=== PATIENT | female | born 1995 | race Asian ===

== ENCOUNTER 2023-06-10 07:40 | Inpatient (IN) ==
[2023-06-10] MEDS ORDERED: LIDOCAINE 1% LOCAL 20 ML VIAL INFIL PRN (08:05)
[2023-06-10] MEDS ORDERED: OXYTOCIN 30 UNITS/NSS 30 UNITS/500 ML BAG IV PRN ×3 (08:05→13:28)
[2023-06-10 08:28] LABS: Hemoglobin 11.1 g/dl (12.0-16.0); Mean Corpuscular Hemoglobin 30.7 pg (25.0-34.0); Mean Corpuscular Hgb Conc 33.6 g/dL (32.0-36.0); Mean Corpuscular Volume 91.2 fL (80.0-100.0); Mean Platelet Volume 12.2 fL (9.4-12.4); Platelet Count 126 K/uL (130-400); RDW Coefficient of Variation 13.5 % (11.5-14.5); RDW Standard Deviation 45.5 fL (36.4-46.3); Red Blood Count 3.62 M/uL (4.20-5.40)
--- NOTE | 2023-06-10 08:41 | History & Physical Report ---
Date of Service June 10, 2023 Assessment & Plan (1) Encounter for induction of labor: Plan admit, iv, labs. start pitocin. fhts categ 1. epidural when desires. Admission and Anticipated Discharge Date Admission Date: June 10, 2023 History of Present Illness Chief Complaint: planned induction Primary Care Provider: NO PCP 28yo at 40+wks egpee presents to L&D for planned induction of labor. No rom, no vb. +FM. No ctx. PNC uncomplicated. PNL rh pos, ri, gbs neg OBH: g1 GYNH: nl paps no stds Allergies Allergy/AdvReac Type Severity Reaction Status Date / Time No Known Allergies Allergy Verified 06/10/23 08:15 Home Medications Medication Instructions Recorded Confirmed Type calcium carbonate [Calcium 500] PO 03/25/23 06/09/23 History docosahexaenoic acid [Algal PO 03/25/23 06/09/23 History Pollock-3 DHA] folic acid PO 03/25/23 06/09/23 History lxliwyeaxazv-tgkl-gmtrhcey PO 03/25/23 06/09/23 History ferrous sulfate PO 04/22/23 06/09/23 History Patient History Medical History (Updated 06/10/23 @ 08:40 by Karie Smith MD, FACOG) Varicella vaccination Surgical History No history of previous surgery Family History Mother Lung cancer Hypertension Grandmother (Maternal) Depression Denies family history of Ovarian cancer Breast cancer Colorectal cancer Social History (Updated 03/25/23 @ 10:13 by Isabella Matos) Smoking Status: Never smoker Do You Dip or Chew Tobacco: No; Hx Alcohol Use: No Hx Substance Use: No Preferred Language: Lithuanian Communication Ability: Effective 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 Beliefs That Will Affect Care: Voodoo Voodoo Beliefs: hindu and Cultural Cultural Beliefs: plans to chew arnoldo when in labor for strength marital status: marital status details: Abran Combs (30) Current Living Situation: Spouse, Parent and Family Current Living Situation Comment: lives with spouse, sister inlaw & boyfriend, 2 dogs current occupation: [employer] Assistive Devices: None Review of Systems as per Subjective / HPI Physical Exam Constitutional: WD/WN, vitals as above Respiratory: normal respiratory effort, lungs clear to auscultation Cardiovascular: Rate/Rhythm: regular rate and regular rhythm Gastrointestinal (Abdomen): soft gravid nt efw 7# Musculoskeletal: no edema nontender calves Neurologic: grossly normal Psychiatric: A+Ox3, euthymic affect Genitourinary: OB Exam Abdomen: + vertex Manual OB Exam: + cervical dilation 6 cm, + cervical effacement (75%), + station -1 and + amniotic fluid (AROM) clear OB Exam Monitor Tracing: + external FHT monitor used, + external uterine monitor used (irreg), + category I and + normal FHT variability Results & Data Vital Signs (Past 12 Hours) Vital Signs Temp Pulse Resp BP 06/10/23 07:55 98.2 F 18 06/10/23 07:54 81 125/73 Code Status & VTE Plan VTE Prophylaxis Plan VTE Prophylaxis will be ordered: No Coding Level of Care Code None Diagnoses Encounter for induction of labor Z34.90
[2023-06-10] MEDS: LACTATED RINGER'S 1,000 ML IV PRN ×2 (08:42→11:22)
[2023-06-10] MEDS ORDERED: SODIUM CHLORIDE 0.9% PF INJ 10 ML VIAL ONE (08:46)
[2023-06-10] MEDS ORDERED: ePHEDrine sulfate 50 MG/ML AMP ONE (08:46)
[2023-06-10] MEDS ORDERED: fentaNYL citrate PF 100 MCG/2 ML VIAL ONE (08:46)
[2023-06-10] MEDS ORDERED: fentANYL 2 MCG/ML BUPIVacaine 0.125%-NSS 100ML BAG ONE (08:47)
[2023-06-10] MEDS ORDERED: BUPIVACAINE 0.25% PF 30 ML VIAL ONE (08:47)
[2023-06-10] MEDS ORDERED: LIDOCAINE 2%/EPINEPHRINE 1:200,000 20 ML PF ONE (08:47)
[2023-06-10] MEDS ORDERED: LIDOCAINE 2%/EPINEPHRINE 1:200,000 20 ML PF EPI STA (10:10)
[2023-06-10] MEDS ORDERED: diphenhydrAMINE 50 MG/ML VIAL IV PRN (10:10)
[2023-06-10] MEDS ORDERED: NALBUPHINE HCL 5 MG in SYRINGE 0 ML IV PRN (10:10)
[2023-06-10] MEDS ORDERED: fentANYL 2 MCG/ML BUPIVacaine 0.125%-NSS 100ML BAG EPI PRN (10:10)
[2023-06-10] MEDS ORDERED: fentaNYL citrate PF 100 MCG/2 ML VIAL EPI PRN (10:10)
[2023-06-10] MEDS ORDERED: fentaNYL citrate PF 100 MCG/2 ML VIAL EPI STA (10:10)
[2023-06-10] MEDS ORDERED: ROPIVACAINE 0.5% PF 5 MG/ML 20 ML VIAL EPI PRN (10:10)
[2023-06-10] MEDS ORDERED: BUPIVACAINE 0.25% PF 30 ML VIAL EPI STA (10:10)
[2023-06-10] MEDS ORDERED: BUPIVACAINE 0.25% PF 30 ML VIAL EPI PRN (10:10)
[2023-06-10] MEDS ORDERED: LIDOCAINE 2% MPF LOCAL 5 ML VIAL EPI PRN (10:10)
[2023-06-10] MEDS ORDERED: ePHEDrine sulfate 50 MG/ML AMP IV PRN (10:10)
[2023-06-10] MEDS ORDERED: NALOXONE HCL 0.4 MG/1 ML VIAL/CARP IV PRN (10:10)
[2023-06-10] MEDS ORDERED: ONDANSETRON INJ 2 MG/ML 2 ML VIAL IV PRN (10:10)
[2023-06-10] MEDS ORDERED: SODIUM CHLORIDE 0.9% PF INJ 10 ML VIAL EPI STA (10:10)
[2023-06-10] MEDS ORDERED: SODIUM CHLORIDE 0.9% PF INJ 10 ML VIAL EPI PRN (10:10)
[2023-06-10] MEDS ORDERED: NALOXONE HCL 1 MG in SODIUM CHLORIDE 0.9% 1,000 ML IV PRN (10:10)
--- NOTE | 2023-06-10 10:10 | Anesthesiology Consultation ---
Date of Service June 10, 2023 Assessment & Plan ASA ASA2 Proposed Anesthesia Anesthesia Type: Labor Epidural Risk / Benefits Reviewed With: PT / POA / Parent / Guardian, Accepts Plan and Informed Consent Obtained History Height/Weight Height: 5 ft 2.2 in Weight: 55.248 kg Allergies Allergy/AdvReac Type Severity Reaction Status Date / Time No Known Allergies Allergy Verified 06/10/23 08:15 Medications Home Medications Medication Instructions Recorded Confirmed Last Taken calcium carbonate [Calcium 500] PO 03/25/23 06/09/23 Unknown docosahexaenoic acid [Algal PO 03/25/23 06/09/23 Unknown [place]-3 DHA] folic acid PO 03/25/23 06/09/23 Unknown edjperqddhhf-wsxi-mtiuecwj PO 03/25/23 06/09/23 Unknown ferrous sulfate PO 04/22/23 06/09/23 Unknown Active Medications Generic Name Dose Route Start Last Admin Trade Name Freq PRN Reason Stop Dose Admin Fentanyl/Bupivacaine/Sodium Chlor 100 ml 06/10/23 10:10 06/10/23 10:34 Fentanyl 2 Mcg/Ml Bupivacaine 0.125%-Nss 100ml Bag EPI 06/11/23 10:09 100 ml PRN PRN Administration Pain R/T Labor Protocol Lactated Ringer's 1,000 mls @ 125 mls/hr 06/10/23 08:05 06/10/23 10:17 Lr IV 06/12/23 08:04 999 mls/hr .Q8H PRN Infusion L&D Protocol Protocol Oxytocin 30 units in 500 mls @ 5 mls/hr 06/10/23 08:06 06/10/23 10:00 Pitocin 30 Units/Nss IV 06/12/23 08:05 0.3 units/hr .Q24H PRN 5 mls/hr Labor Induction/Augmentation Titration Protocol 0.3 UNITS/HR Past Medical History Medical History Varicella vaccination Exercise / Class Metabolic Activity II 4-5 Yardwork/Stairs/Walk up hill Past Family History Family History Mother Lung cancer Hypertension Grandmother (Maternal) Depression Denies family history of Ovarian cancer Breast cancer Colorectal cancer Past Surgical History Surgical History No history of previous surgery Past Anesthesia History No Hx of Anesthesia Complications and No Family Hx of Anesthesia Complications History of PONV No Hx of PONV and No Hx of Motion Sickness Social History Smoking Status: Never smoker Do You Dip or Chew Tobacco: No Hx Alcohol Use: No Hx Substance Use: No Review of Systems denies fever/cough/ colds/ chest pain/ SOB/ FAM denies FAM Physical Exam Vital Signs Last Vital Signs Temp 36.8 C 06/10/23 07:55 Pulse 75 06/10/23 10:39 Resp 18 06/10/23 10:24 BP 122/71 06/10/23 10:38 Pulse Ox 100 06/10/23 10:39 ENMT Mouth: no TMJ abnormality and no dentition abnormality Thyromental Distance: > or= 3.5 Finger Breadths Mallampati Class: II Neck neck extension not limited Respiratory normal respiratory effort; no respiratory distress Auscultation: lungs clear to auscultation bilaterally Cardiovascular Rate/Rhythm: regular rate and regular rhythm Neurologic moves all extremities Psychiatric Orientation: alert and oriented x 3 Testing Laboratory Results 06/10/23 08:09
--- NOTE | 2023-06-10 12:16 | Labor Progress Brief Note ---
Date of Service June 10, 2023 Subjective comfortable with epidural Assessment & Plan (1) Encounter for induction of labor: Plan begin 2nd stage. catag 1-2 fetus. good maternal effort. Admission and Anticipated Discharge Date Admission Date: June 10, 2023 Physical Exam Constitutional: WD/WN, vitals as above Genitourinary: Manual OB Exam: + cervical dilation 10 cm, + cervical effacement 100% and + station + 3 OB Exam Monitor Tracing: + external FHT monitor used, + external uterine monitor used (q2), + category I and + normal FHT variability Results & Data Vital Signs (Past 12 Hours) Vital Signs Temp Pulse Resp BP Pulse Ox 06/10/23 12:14 104 H 100 06/10/23 12:11 96 H 90 06/10/23 12:09 69 100 06/10/23 12:04 85 100 06/10/23 12:03 98 H 141/82 H 06/10/23 11:59 72 100 06/10/23 11:54 74 100 06/10/23 11:49 69 100 06/10/23 11:44 69 103/56 L 100 06/10/23 11:41 66 104/57 L 06/10/23 11:39 71 100 06/10/23 11:38 67 101/57 L 06/10/23 11:35 68 101/59 L 06/10/23 11:34 71 100 06/10/23 11:32 105/66 06/10/23 11:29 71 107/63 100 06/10/23 11:27 71 127/61 06/10/23 11:24 75 96 06/10/23 11:20 72 119/68 06/10/23 11:19 71 100 06/10/23 11:18 74 121/71 06/10/23 11:15 16 06/10/23 11:15 16 06/10/23 11:14 86 114/65 100 06/10/23 11:12 90 109/64 06/10/23 11:09 78 97 06/10/23 11:08 81 137/71 06/10/23 11:05 71 119/61 06/10/23 11:04 87 100 06/10/23 10:59 78 121/82 100 06/10/23 10:56 76 124/82 06/10/23 10:54 81 100 06/10/23 10:53 75 126/81 06/10/23 10:50 73 120/76 06/10/23 10:49 73 100 06/10/23 10:47 78 120/74 06/10/23 10:44 75 123/71 100 06/10/23 10:41 75 114/65 06/10/23 10:39 75 100 06/10/23 10:38 75 122/71 06/10/23 10:35 75 115/68 06/10/23 10:34 76 100 06/10/23 10:33 76 117/73 06/10/23 10:32 85 122/77 06/10/23 10:29 86 100 06/10/23 10:24 18 06/10/23 10:24 18 06/10/23 10:24 96 06/10/23 10:24 156 H 06/10/23 10:24 163 H 85 L 06/10/23 10:15 18 06/10/23 10:15 18 06/10/23 09:30 18 06/10/23 09:30 18 06/10/23 09:29 77 124/75 06/10/23 07:55 98.2 F 18 06/10/23 07:54 81 125/73 Coding Level of Care Code None Diagnoses Encounter for induction of labor Z34.90
--- NOTE | 2023-06-10 13:19 | Delivery Summary ---
Vaginal Delivery Summary Date of Service June 10, 2023 Vaginal Delivery Summary and 3rd Degree LAC (partial) The patient dilated to complete and pushed to deliver a viable male infant Apgars 8 and 9 via over partial 3rd degree perineal laceration. Mouth and nose bulb suctioned at perineum. Loose nuchal x 1 noted but delivered through. Shoulders and body delivered with ease. Infant was vigorous and crying at . Cord clamped at 30 seconds of life and infant to maternal abdomen where the cord was then doubly clamped and cut. Cord blood for donation obtained and then cord blood. Placenta delivered spontaneously and intact, three-vessel cord. Hemostasis achieved with dilute pitocin and uterine massage. Laceration repaired in layers with 3-0 vicryl. Cervix and sulci intact. EBL 500 cc. Mother and baby stable in recovery. [facility] – [place], [place] Vaginal Delivery Charge Delivery Type Details: and 3rd Degree LAC (partial)
[2023-06-10] MEDS ORDERED: DIPHTHERIA/TETANUS/PERTUSSIS Vaccine (Tdap, Age 7+yrs) 0.5mL SYR/VL IM ONE (13:28)
[2023-06-10] MEDS ORDERED: bisacodyL 10 MG SUPP PR PRN (13:28)
[2023-06-10] MEDS ORDERED: HYDROCORTISONE ACETATE 25 MG SUPP PR PRN (13:28)
[2023-06-10] MEDS ORDERED: ACETAMINOPHEN 325 MG TAB PO PRN (13:28)
[2023-06-10] MEDS ORDERED: BENZOCAINE 20% SPRY 85 APPLN/85 GM CAN EXT PRN (13:28)
[2023-06-10] MEDS ORDERED: OXYTOCIN 20 UNITS/LR 1,002 ML IV SCH (13:30)
--- NOTE | 2023-06-10 14:12 | Anesthesia Procedure Note ---
Date of Service June 10, 2023 Anesthesia Post Epidural Note Vital Signs Vital Signs: Temp Pulse Resp BP Pulse Ox 37.1 C 105 H 18 139/72 96 06/10/23 12:17 06/10/23 14:02 06/10/23 13:45 06/10/23 14:02 06/10/23 13:04 Notes Mental Status: alert / awake / arousable and participated in evaluation Nausea / Vomiting: adequately controlled Pain: adequately controlled Airway Patency, RR, SpO2: stable & adequate BP & HR: stable & adequate Hydration State: stable & adequate Neuraxial Anesthesia: was administered and sensory block resolved Anesthetic Complications: no major complications apparent and Pt Satisfied with anesthetic care Epidural: Removed without complications and With tip intact
[2023-06-10] MEDS: IBUPROFEN 600 MG TAB PO PRN (18:25)
[2023-06-10] MEDS: DOCUSATE SODIUM 100 MG CAP PO SCH (20:57)
--- NOTE | 2023-06-11 06:23 | Obstetrical Progress Note ---
Date of Service June 11, 2023 Assessment & Plan (1) Encounter for care after hospital delivery: Plan -Vital signs reviewed and WNL -HGB 8.1 -Blood type O+ -Rubella unknown -Pt doing well clinically -Encourage ambulation -Monitor and control pain with Motrin prn -Monitor lochia -Encourage Admission and Anticipated Discharge Date Admission Date: June 10, 2023 Supervising Physician Co-Signing Physician Notes Resident Physician Supervision Note: I was present with Dr. Cash during the history and exam. I discussed the case with the resident and agree with the findings and plan as documented in the note. Any exceptions or clarifications are listed here: stable, eating, voiding, ambulating without issues. was cold last night so opted to bottlefeed baby but tells me she wants to breast feed. abd soft ff 3 down nt, ext nt calves. ppd#1 s/p . doing well. enc nursing education about feeding and her goals as she asked about pumping too. routine care. rh pos, ri. Documented By: Karie Smith MD, FACOG Subjective 28 yo post- day 1 s/p Ambulation: ambulating normally Voiding: no voiding problems Passing Gas:: Yes Diet Tolerance:: regular diet Lochia:: Small Feeding Type: breast feeding and bottle feeding with Enfamil Current Pain Level: minimal Resting comfortably this AM in NAD. Denies CARLISLE, CP, SOB, N/V/D, LE pain/swelling. Review of Systems Review of Systems: All systems reviewed & are unremarkable except as noted in HPI & below Physical Exam Physical Exam: General: patient resting comfortably, NAD, non-toxic in appearance, AA&O x 4, answers questions appropriately. Skin: warm, dry, intact HEENT: NC/AT, anicteric sclera, conjunctiva without injection, moist mucus membranes. Heart: +S1/S2, regular, no m/r/g Lungs: equal air entry bilaterally, no rales/rhonchi/wheezes Abd: +BS, soft, NT/ND, uterine fundus firm at umbilicus Ext: warm, no clubbing/cyanosis or edema, Noe's neg. Neuro: nonfocal, patient AA&O x 4, speech intact, no facial droop, moving all e xtremities on command. Results & Data Vital Signs (Past 12 Hours) Vital Signs Temp Pulse Resp BP O2 Del Method 06/11/23 03:25 36.6 C 89 14 102/66 Room Air 06/11/23 00:30 36.7 C 86 16 101/66 Room Air 06/10/23 19:30 37.0 C 91 H 16 98/64 L Room Air Resident Activity Tracking Resident Involvement: Resident Care Provided Care Provided: OB Delivery
[2023-06-11 06:53] LABS: Hematocrit (blood only) 25.1 % (37.0-47.0); Hemoglobin 8.1 g/dl (12.0-16.0); Mean Corpuscular Hemoglobin 30.2 pg (25.0-34.0); Mean Corpuscular Hgb Conc 32.3 g/dL (32.0-36.0); Mean Corpuscular Volume 93.7 fL (80.0-100.0); Mean Platelet Volume 11.8 fL (9.4-12.4); Platelet Count 117 K/uL (130-400); RDW Coefficient of Variation 13.7 % (11.5-14.5); RDW Standard Deviation 46.7 fL (36.4-46.3); Red Blood Count 2.68 M/uL (4.20-5.40); White Blood Count 12.82 K/ul (4.8-10.8)
[2023-06-11] MEDS: PRENATAL VITAMIN 1 TAB PO SCH (08:04)
[2023-06-11] MEDS: DOCUSATE SODIUM 100 MG CAP PO SCH ×2 (08:04→20:57)
[2023-06-11] MEDS: IBUPROFEN 600 MG TAB PO PRN (08:04)
[2023-06-11] MEDS ORDERED: bisacodyL 5 MG TABEC PO SCH (20:00)
--- NOTE | 2023-06-12 05:56 | Obstetrical Progress Note ---
Date of Service June 12, 2023 Assessment & Plan (1) Encounter for care after hospital delivery: Plan -Vital signs reviewed and WNL -HGB 8.1 -Blood type O+ -Rubella unknown -Pt doing well clinically -Encourage ambulation -Monitor and control pain with Motrin prn -Monitor lochia -Encourage -Discharge home today, instructions explained to patient Admission and Anticipated Discharge Date Admission Date: June 10, 2023 Supervising Physician Co-Signing Physician Notes Resident Physician Supervision Note: I was present with Dr. Moisés Piña during the history and exam. I discussed the case with the resident and agree with the findings and plan as documented in the note. Any exceptions or clarifications are listed here: POD#2 doing well. Anticipate DC home. Rx Percocet #20 tabs sent. Documented By: Naomi Pretty, DO Subjective 28 yo post- day 2 s/p Ambulation: ambulating normally Voiding: no voiding problems Passing Gas:: Yes Diet Tolerance:: regular diet Lochia:: Small Feeding Type: Current Pain Level: minimal Resting comfortably this AM in NAD. Denies CARLISLE, CP, SOB, N/V/D, LE pain/swelling. Review of Systems Review of Systems: All systems reviewed & are unremarkable except as noted in HPI & below Physical Exam Physical Exam: General: patient resting comfortably, NAD, non-toxic in appearance, AA&O x 4, answers questions appropriately. Skin: warm, dry, intact HEENT: NC/AT, anicteric sclera, conjunctiva without injection, moist mucus membranes. Heart: +S1/S2, regular, no m/r/g Lungs: equal air entry bilaterally, no rales/rhonchi/wheezes Abd: +BS, soft, NT/ND, uterine fundus firm at umbilicus Ext: warm, no clubbing/cyanosis or edema, Noe's neg. Neuro: nonfocal, patient AA&O x 4, speech intact, no facial droop, moving all extremities on command. Results & Data Vital Signs (Past 12 Hours) Vital Signs Temp Pulse Resp BP Pulse Ox O2 Del Method 06/12/23 00:40 36.8 C 87 16 103/67 100 Room Air 06/11/23 20:00 36.7 C 98 H 16 107/70 99 Room Air Resident Activity Tracking Resident Involvement: Resident Care Provided Care Provided: OB Delivery
[2023-06-12] MEDS ORDERED: MEASLES, MUMPS & RUBELLA VIRUS VACCINE (MMR) VIAL SQ ONE (07:31)
[2023-06-12] MEDS: IBUPROFEN 600 MG TAB PO PRN (08:08)
[2023-06-12] MEDS: DOCUSATE SODIUM 100 MG CAP PO SCH (08:08)
[2023-06-12] MEDS: PRENATAL VITAMIN 1 TAB PO SCH (08:08)
== END 2023-06-12 12:15 | disposition home or self-care (01) | DRG 768 ==
LOC: 4S1 07:40 → 4E2 16:00